=== PATIENT | male | born 1990 | race Two or more races ===

== ENCOUNTER 2018-10-19 15:11 | Inpatient (IN) | payer OTHER ==
[2018-10-19 16:46] VITALS: BMI 18.1
--- NOTE | 2018-10-19 19:37 | HP ---
CIWA Score Nausea/Vomitin Muscle Tremors: 4-Moderate,w/Arms Extend Anxiety: 1-Mildly Anxious Agitation: 0-Normal Activity Paroxysmal Sweats: 2 Orientation: 0-Oriented Tacttile Disturbances: 1-Very Mild Itch/Numbness Auditory Disturbances: 0-None Visual Disturbances: 1-Very Mild Sensitivity Headache: 3-Moderate CIWA-Ar Total Score: 15 - Admission Criteria OASAS Guidelines: Admission for Medically Managed Detox: Requires at least one of the followin. CIWA greater than 12 2. Seizures within the past 24 hours 3. Delirium tremens within the past 24 hours 4. Hallucinations within the past 24 hours 5. Acute intervention needed for co occurring medical disorder 6. Acute intervention needed for co occurring psychiatric disorder 7. Severe withdrawal that cannot be handled at a lower level of care (continued vomiting, continued diarrhea, abnormal vital signs) requiring intravenous medication and/or fluids 8. Patient presents the following: CIWA greater than 12 Admission Criteria Met: Admission criteria met Admission ROS BHS - HPI Chief Complaint: alcohol withdrawal symptoms Allergies/Adverse Reactions: Allergies Allergy/AdvReac Type Severity Reaction Status Date / Time No Known Allergies Allergy Verified 10/19/18 16:36 History of Present Illness: Patient is a 28 yo male with hx of alcohol dependence is here seeking patient detox Reports discharged from [facility] emergency room PMHX: seizure d/o last seizure two years ago Psych: Bipolar and depression Denies suicidal / homicidal ideation Exam Limitations: No Limitations - Ebola screening Have you traveled outside of the country in the last 21 days: No (N) Have you had contact with anyone from an Ebola affected area: No Do you have a fever: No - Review of Systems Constitutional: Chills, Loss of Appetite EENT: reports: No Symptoms Reported Respiratory: reports: No Symptoms reported Cardiac: reports: No Symptoms Reported GI: reports: Nausea, Poor Appetite, Poor Fluid Intake, Vomiting : reports: No Symptoms Reported Musculoskeletal: reports: Back Pain Integumentary: reports: No Symptoms Reported Neuro: reports: See HPI, Headache Endocrine: reports: Increased Thirst Hematology: reports: No Symptoms Reported Psychiatric: reports: Orientated x3, Anxious Other Systems: Reviewed and Negative Patient History - Patient Medical History Hx Anemia: No Hx Asthma: No Hx Chronic Obstructive Pulmonary Disease (COPD): No Hx Cancer: No Hx Cardiac Disorders: No Hx Congestive Heart Failure: No Hx Hypertension: No Hx Hypercholesterolemia: No Hx Pacemaker: No HX Cerebrovascular Accident: No Hx Seizures: No Hx Dementia: No Hx Diabetes: No Hx Gastrointestinal Disorders: No Hx Liver Disease: No Hx Genitourinary Disorders: No Hx Sexually Transmitted Disorders: No Hx Renal Disease (ESRD): No Hx Thyroid Disease: No Hx Human Immunodeficiency Virus (HIV): No Hx Hepatitis C: No Hx Depression: Yes Hx Suicide Attempt: No Hx Bipolar Disorder: Yes Hx Schizophrenia: No - Patient Surgical History Past Surgical History: No - PPD History Previous Implant?: No PPD to be Administered?: Yes - Smoking Cessation Smoking history: Current every day smoker Have you smoked in the past 12 months: Yes Aproximately how many cigarettes per day: 10 Hx Chewing Tobacco Use: No Initiated information on smoking cessation: Yes 'Breaking Loose' booklet given: 10/19/18 - Substance & Tx. History Hx Alcohol Use: Yes Hx Substance Use: Yes Substance Use Type: Alcohol Hx Substance Use Treatment: Yes ([facility] detox discharge today) - Substances abused Alcohol Substance route: Oral Frequency: Daily Amount used: 1 PINT OF VODKA Age of first use: 19 Date of last use: 10/19/18 Family Disease History - Family Disease History Family History: Denies Admission Physical Exam BHS - Vital Signs Vital Signs: Vital Signs - 24 hr 10/19/18 16:35 Temperature 98 F Pulse Rate 104 H Respiratory 18 Rate Blood Pressure 130/88 - Physical General Appearance: Yes: Appropriately Dressed, Mild Distress, Thin, Tremorous, Sweating, Anxious HEENTM: Yes: EOMI, Hearing grossly Normal, Normal ENT Inspection, Normocephalic , Pharynx Normal, Tm's normal, Other (cheilitis) Respiratory: Yes: Chest Non-Tender, Lungs Clear, Normal Breath Sounds, No Respiratory Distress, No Accessory Muscle Use Neck: Yes: Within Normal Limits Breast: Yes: Breast Exam Deferred Cardiology: Yes: Regular Rhythm, Regular Rate Abdominal: Yes: Normal Bowel Sounds, Non Tender, Flat Genitourinary: Yes: Within Normal Limits Back: Yes: Normal Inspection Musculoskeletal: Yes: full range of Motion, Gait Steady, Pelvis Stable, Muscle weakness Extremities: Yes: Within Normal Limits Neurological: Yes: piping supervisor II-XII NML intact, Fully Oriented, Alert, Motor Strength 5/5, Depressed Affect Integumentary: Yes: Normal Color, Warm, Diaphoresis Lymphatic: Yes: Within Normal Limits - Diagnostic (1) Alcohol dependence with uncomplicated withdrawal Current Visit: Yes Status: Acute (2) Seizure disorder Current Visit: Yes Status: Chronic (3) Psychiatric disorder Current Visit: Yes Status: Suspected Cleared for Admission S - Detox or Rehab [facility] Level of Care: Medically Managed Detox Regimen/Protocol: Librium Breathalyzer - Breathalyzer Breathalyzer: 0.150 Urine Drug Screen - Test Device Lot number: [id number] Expiration date: 01/21/20 - Control Is test valid?: Yes - Results Drug screen NEGATIVE: No Urine drug screen results: BZO-Benzodiazepines Inpatient Rehab Admission - Rehab Decision to Admit Inpatient rehab admission?: No
[2018-10-19] MEDS ORDERED: MAGNESIUM CITRATE 300 ML BOTTLE PO PRN (19:40)
[2018-10-19] MEDS ORDERED: MAGNESIUM HYDROX 2400MG/30ML ORAL SUSPENSION 30 ML CUP PO PRN (19:40)
[2018-10-19] MEDS ORDERED: ACETAMINOPHEN 325 MG TABLET (FP) PO PRN (19:40)
[2018-10-19] MEDS ORDERED: BISMUTH SUBSALICYLATE 524 MG/30 ML UD PO PRN (19:40)
[2018-10-19] MEDS ORDERED: NICOTINE POLACRILEX 2 MG GUM BUC PRN (19:40)
[2018-10-19] MEDS ORDERED: MENTHOL/PHENOL 1 EACH UD MM PRN (19:40)
[2018-10-19] MEDS ORDERED: MAG HYDROX/AL HYDROX/SIMETH 30 ML UNIT-DOSE CUP PO PRN (19:40)
[2018-10-19] MEDS: chlordiazePOXIDE HCL 25 MG CAPSULE PO PRN (21:08)
[2018-10-19] MEDS: THIAMINE HCL 100 MG TABLET (FP) PO SCH (22:19)
[2018-10-19] MEDS: chlordiazePOXIDE HCL 25 MG CAPSULE PO SCH (22:19)
[2018-10-19] MEDS: MELATONIN 5 MG TABLETS PO PRN (22:19)
[2018-10-19] MEDS: levETIRAcetam 250 MG TABLET (FP) PO SCH (22:19)
[2018-10-19] MEDS: IBUPROFEN 400 MG TABLET (FP) PO PRN (22:20)
[2018-10-20] MEDS: chlordiazePOXIDE HCL 25 MG CAPSULE PO PRN ×2 (02:07→21:12)
[2018-10-20] MEDS: chlordiazePOXIDE HCL 25 MG CAPSULE PO SCH ×4 (06:14→22:22)
[2018-10-20] MEDS: PRENATAL VITAMINS W/ FOLIC ACID TABLET (FP) PO SCH (10:17)
[2018-10-20] MEDS: NICOTINE 14 MG/24 HOURS TOPICAL PATCH TD SCH (10:17)
[2018-10-20] MEDS: levETIRAcetam 250 MG TABLET (FP) PO SCH ×2 (10:17→22:22)
[2018-10-20] MEDS: ACETAMINOPHEN 325 MG TABLET (FP) PO PRN ×2 (10:19→19:25)
[2018-10-20] MEDS: METHOCARBAMOL 500 MG TABLET PO PRN ×2 (10:21→22:21)
[2018-10-20 10:58] LABS: HEMATOCRIT 34.3 % (35.4-49); HEMOGLOBIN 11.5 GM/dL (11.7-16.9); MCH 28.7 pg (25.7-33.7); MCHC 33.6 g/dl (32.0-35.9); MEAN CELL VOLUME 85.4 fl (80-96); MEAN PLT VOLUME 8.1 fl (7.5-11.1); PLATELET COUNT 169 K/MM3 (134-434); RBC 4.02 M/mm3 (4.00-5.60)
--- NOTE | 2018-10-20 11:10 | CONSULT ---
[facility] Psychiatric Consult - Data Date of interview: 10/20/18 Admission source: [facility] detox Identifying data: Mr Hayward is a 28 years old , father of a 7 years old son, employed in construction, living with family seeking detox treatment for alcohol Substance Abuse History: Reports history of alcohol use. Refer to addiction counselor's summary for further information Medical History: Significant for seizure disorder. Smokes 10 cigarettes daily Psychiatric History: Denies history of previous psychiatric treatment. However, reports feeling depressed, anxious and sleeping poorly Physical/Sexual Abuse/Trauma History: Denies history of emotional, physical or sexual abuse as well as DV relationship. No service Additional Comment: Denies criminal history Mental Status Exam - Mental Status Exam Alert and Oriented to: Time, Place, Person Cognitive Function: Fair Patient Appearance: Well Groomed Mood: Depressed, Anxious Affect: Appropriate Patient Behavior: Cooperative Speech Pattern: Clear Voice Loudness: Normal Thought Process: Intact, Goal Oriented Hallucinations: Denies Suicidal Ideation: Denies Homicidal Ideation: Denies Insight/Judgement: Poor Sleep: Poorly Appetite: Fair Muscle strength/Tone: Normal Gait/Station: Normal Psychiatric Findings - Problem List ([place] 1, 2,3) (1) Alcohol-induced mood disorder Current Visit: Yes Status: Acute (2) Alcohol-induced sleep disorder Current Visit: Yes Status: Acute (3) Alcohol dependence with uncomplicated withdrawal Current Visit: Yes Status: Acute (4) Nicotine dependence Current Visit: Yes Status: Chronic (5) Seizure disorder Current Visit: Yes Status: Chronic - Initial Treatment Plan Initial Treatment Plan: Continue inpatient detoxification
--- NOTE | 2018-10-20 11:19 | PN ---
S CIWA - CIWA Score Nausea/Vomitin-Mild Nausea/No Vomiting Muscle Tremors: 4-Moderate,w/Arms Extend Anxiety: 3 Agitation: 4-Moderately Restless Paroxysmal Sweats: 3 Orientation: 0-Oriented Tacttile Disturbances: 0-None Auditory Disturbances: 0-None Visual Disturbances: 0-None Headache: 0-None Present CIWA-Ar Total Score: 15 BHS Progress Note (SOAP) Subjective: sweats shakes anxiety interrupted sleep nausea Objective: 10/20/18 11:18 Vital Signs Temperature 98.1 F 10/20/18 10:30 Pulse Rate 692 H 10/20/18 10:30 Respiratory Rate 18 10/20/18 10:30 Blood Pressure 118/80 10/20/18 10:30 O2 Sat by Pulse Oximetry (%) pending labs [id number] ambulating no acute distress Assessment: 10/20/18 11:18 withdrawal sx Plan: continue detox increase fluids pending labs
[2018-10-20 12:23] LABS: ALBUMIN 3.3 g/dl (3.4-5.0); BILIRUBIN,TOTAL 0.7 mg/dL (0.2-1); CALCIUM 8.3 mg/dL (8.5-10.1); CREATININE 0.6 mg/dL (0.55-1.3); POTASSIUM 3.8 mmol/L (3.5-5.1); TOT PROT 6.1 g/dl (6.4-8.2)
--- NOTE | 2018-10-20 13:10 | EKG ---
Test Reason : Blood Pressure : / mmHG Vent. Rate : 077 BPM Atrial Rate : 077 BPM P-R Int : 150 ms QRS Dur : 094 ms QT Int : 398 ms P-R-T Axes : 068 060 054 degrees QTc Int : 450 ms NORMAL SINUS RHYTHM NORMAL ECG NO PREVIOUS ECGS AVAILABLE Confirmed by FLOWER ULLOA MD ([id number]) on 10/20/2018 1:10:20 PM Referred By: Lynda CRYSTAL Confirmed By:FLOWER ULLOA MD
[2018-10-20] MEDS: MELATONIN 5 MG TABLETS PO PRN (22:22)
[2018-10-20] MEDS: THIAMINE HCL 100 MG TABLET (FP) PO SCH (22:22)
[2018-10-21] MEDS: chlordiazePOXIDE HCL 25 MG CAPSULE PO PRN (02:39)
[2018-10-21] MEDS: chlordiazePOXIDE HCL 25 MG CAPSULE PO SCH ×3 (05:30→17:24)
[2018-10-21] MEDS: METHOCARBAMOL 500 MG TABLET PO PRN ×3 (05:33→22:25)
[2018-10-21] MEDS: PRENATAL VITAMINS W/ FOLIC ACID TABLET (FP) PO SCH (09:37)
[2018-10-21] MEDS: levETIRAcetam 250 MG TABLET (FP) PO SCH ×2 (09:37→22:24)
[2018-10-21] MEDS: hydrOXYzine PAMOATE 25 MG CAPSULE (FP) PO PRN ×2 (09:39→22:26)
[2018-10-21] MEDS: NICOTINE 14 MG/24 HOURS TOPICAL PATCH TD SCH (09:50)
--- NOTE | 2018-10-21 12:12 | PN ---
S CIWA - CIWA Score Nausea/Vomitin-No Nausea/No Vomiting Muscle Tremors: 3 Anxiety: 3 Agitation: 1-Slight > Activity Paroxysmal Sweats: 3 Orientation: 0-Oriented Tacttile Disturbances: 0-None Auditory Disturbances: 0-None Visual Disturbances: 0-None Headache: 2-Mild CIWA-Ar Total Score: 12 S Progress Note (SOAP) Subjective: c/o anxiety, headache, tremors, and sweats. Objective: 10/21/18 12:10 Vital Signs 10/21/18 10/21/18 06:00 09:10 Temperature 97.2 F L 98.4 F Pulse Rate 61 86 Respiratory 16 18 Rate Blood Pressure 133/85 121/93 Lab Results WBC 3.0 K/mm3 (4.0-10.0) L 10/20/18 07:00 RBC 4.02 M/mm3 (4.00-5.60) 10/20/18 07:00 Hgb 11.5 GM/dL (11.7-16.9) L 10/20/18 07:00 Hct 34.3 % (35.4-49) L 10/20/18 07:00 MCV 85.4 fl (80-96) 10/20/18 07:00 MCHC 33.6 g/dl (32.0-35.9) 10/20/18 07:00 RDW 15.0 % (11.9-15.9) 10/20/18 07:00 Plt Count 169 K/MM3 (134-434) 10/20/18 07:00 Sodium 138 mmol/L (136-145) 10/20/18 07:00 Potassium 3.8 mmol/L (3.5-5.1) 10/20/18 07:00 Chloride 107 mmol/L (98-107) 10/20/18 07:00 Carbon Dioxide 29 mmol/L (21-32) 10/20/18 07:00 Anion Gap 2 MMOL/L (8-16) L 10/20/18 07:00 BUN 13 mg/dL (7-18) 10/20/18 07:00 Creatinine 0.6 mg/dL (0.55-1.3) 10/20/18 07:00 Random Glucose 85 mg/dL (74-106) 10/20/18 07:00 Calcium 8.3 mg/dL (8.5-10.1) L 10/20/18 07:00 Labs noted. Assessment: 10/21/18 12:11 AOX3, in no acute distress. full rom, ambulating in the unit withdrawal symptoms. Plan: continue detox. increase fluids. vistaril 25mg po Q4hrs prn for anxiety.
[2018-10-21] MEDS: IBUPROFEN 400 MG TABLET (FP) PO PRN (13:53)
[2018-10-21] MEDS: THIAMINE HCL 100 MG TABLET (FP) PO SCH (22:24)
[2018-10-21] MEDS: chlordiazePOXIDE HCL 10 MG CAPSULE PO SCH (22:24)
[2018-10-21] MEDS ORDERED: chlordiazePOXIDE HCL 10 MG CAPSULE PO PRN (23:00)
[2018-10-22] MEDS: MELATONIN 5 MG TABLETS PO PRN (01:34)
[2018-10-22] MEDS: chlordiazePOXIDE HCL 10 MG CAPSULE PO SCH ×3 (05:16→18:08)
[2018-10-22] MEDS: ACETAMINOPHEN 325 MG TABLET (FP) PO PRN (05:37)
[2018-10-22] MEDS: levETIRAcetam 250 MG TABLET (FP) PO SCH ×2 (10:12→22:45)
[2018-10-22] MEDS: PRENATAL VITAMINS W/ FOLIC ACID TABLET (FP) PO SCH (10:12)
[2018-10-22] MEDS: NICOTINE 14 MG/24 HOURS TOPICAL PATCH TD SCH (10:13)
[2018-10-22] MEDS: IBUPROFEN 400 MG TABLET (FP) PO PRN (10:14)
[2018-10-22] MEDS: hydrOXYzine PAMOATE 25 MG CAPSULE (FP) PO PRN ×3 (10:25→22:46)
--- NOTE | 2018-10-22 16:01 | PN ---
[facility] CIWA - CIWA Score Nausea/Vomitin-No Nausea/No Vomiting Muscle Tremors: None Anxiety: 4-Mod. Anxious/Guarded Agitation: 3 Paroxysmal Sweats: 2 Orientation: 0-Oriented Tacttile Disturbances: 0-None Auditory Disturbances: 0-None Visual Disturbances: 0-None Headache: 0-None Present CIWA-Ar Total Score: 9 BHS Progress Note (SOAP) Subjective: Agitated, interrupted sleep Objective: 10/22/18 15:58 Last Vital Signs Temp Pulse Resp BP Pulse Ox 97.9 F 65 16 122/74 10/22/18 13:46 10/22/18 13:46 10/22/18 13:46 10/22/18 13:46 Laboratory Tests 10/20/18 10/20/18 10/20/18 07:00 07:00 07:00 WBC 3.0 L RBC 4.02 Hgb 11.5 L Hct 34.3 L MCV 85.4 MCH 28.7 MCHC 33.6 RDW 15.0 Plt Count 169 MPV 8.1 Sodium 138 Potassium 3.8 Chloride 107 Carbon Dioxide 29 Anion Gap 2 L BUN 13 Creatinine 0.6 Est GFR (CKD-EPI)AfAm 160.83 Est GFR (CKD-EPI)NonAf 138.76 Random Glucose 85 Calcium 8.3 L Total Bilirubin 0.7 AST 57 H ALT 23 Alkaline Phosphatase 68 Total Protein 6.1 L Albumin 3.3 L RPR Titer Nonreactive HIV 1&2 Antibody Screen HIV P24 Antigen 10/20/18 07:00 WBC RBC Hgb Hct MCV MCH MCHC RDW Plt Count MPV Sodium Potassium Chloride Carbon Dioxide Anion Gap BUN Creatinine Est GFR (CKD-EPI)AfAm Est GFR (CKD-EPI)NonAf Random Glucose Calcium Total Bilirubin AST ALT Alkaline Phosphatase Total Protein Albumin RPR Titer HIV 1&2 Antibody Screen Negative HIV P24 Antigen Negative Labs reviewed: mild anemia noted Assessment: 10/22/18 15:58 Withdrawal symptoms Plan: Continue detox Encouraged PO water intake
[2018-10-22] MEDS: THIAMINE HCL 100 MG TABLET (FP) PO SCH (22:46)
[2018-10-22] MEDS ORDERED: chlordiazePOXIDE HCL 10 MG CAPSULE PO SCH (23:00)
[2018-10-23] MEDS: MELATONIN 5 MG TABLETS PO PRN (01:15)
--- NOTE | 2018-10-23 08:43 | DS ---
[facility] Detox Discharge Summary Admission Date: 10/19/18 Discharge Date: 10/23/18 - History Present History: Alcohol Dependence - Physical Exam Results Vital Signs: Vital Signs Temperature 97.3 F L 10/23/18 06:08 Pulse Rate 68 10/23/18 06:08 Respiratory Rate 16 10/23/18 06:08 Blood Pressure 112/66 10/23/18 06:08 O2 Sat by Pulse Oximetry (%) - Treatment Hospital Course: Detox Protocol Followed, Detoxed Safely, Responded well, Discharged Condition Good, Rehab Referral Accepted - Medication Discharge Medications: Ambulatory Orders Lacosamide [Vimpat -] 100 tab PO TID 10/19/18 Mirtazapine [Remeron -] 30 mg PO HS 10/19/18 levETIRAcetam [Keppra -] 250 mg PO BID 10/19/18 - Diagnosis (1) Alcohol dependence with uncomplicated withdrawal Current Visit: Yes Status: Chronic (2) Alcohol-induced mood disorder Current Visit: Yes Status: Chronic (3) Alcohol-induced sleep disorder Current Visit: Yes Status: Acute (4) Nicotine dependence Current Visit: Yes Status: Chronic Qualifiers: Nicotine product type: cigarettes Substance use status: uncomplicated Qualified Code(s): F17.210 - Nicotine dependence, cigarettes, uncomplicated (5) Seizure disorder Current Visit: Yes Status: Chronic (6) Psychiatric disorder Current Visit: Yes Status: Suspected - AMA Did Patient Leave Against Medical Advice: No
[2018-10-23 09:17] VITALS: BP 125/88; PULSE 89; TEMP 97.9
[2018-10-23] MEDS: levETIRAcetam 250 MG TABLET (FP) PO SCH (09:17)
== END 2018-10-23 09:05 | disposition home or self-care (01) | DRG 775 ==
LOC: YASAS 15:11 → Y6N 19:41
PROVIDERS: ADMIT Surgery; ATTEND Surgery
PROC: HZ2ZZZZ Detoxification Services for Substance Abuse Treatment (ICD-10-PCS; principal; 2018-10-19)
DX: F10.230 Alcohol dependence with withdrawal, uncomplicated (principal); F10.24 Alcohol dependence with alcohol-induced mood disorder; F10.282 Alcohol dependence with alcohol-induced sleep disorder; F17.210 Nicotine dependence, cigarettes, uncomplicated; F31.9 Bipolar disorder, unspecified; F41.9 Anxiety disorder, unspecified; F99 Mental disorder, not otherwise specified; G40.909 Epilepsy, unspecified, not intractable, without status epilepticus
CPT/HCPCS: 36415; 80053; 85027; 86593; 87389; 93005; 93010